=== PATIENT | female | born 1940 | race African-American/Black ===

== ENCOUNTER 2016-10-13 10:13 | Outpatient (CLI) | payer MEDICARE ==
--- NOTE | 2016-10-13 14:50 | Cat Scan Report ---
Cranial CT without contrast. Findings: The brain parenchyma is normal. There is no evidence of hemorrhage, mass, or extra-axial collection. The Posterior fossa is normal. Mild cortical atrophy is present. The calvarium is intact. There is a small mucosal polyp or cyst in the left maxillary sinus. Impression: No acute intracranial findings.
== END 2016-10-13 10:14 | disposition home or self-care (01) ==
LOC: CT 10:13
PROVIDERS: ATTEND Family Medicine
DX: G44.319 Acute post-traumatic headache, not intractable (principal); S09.90XA Unspecified injury of head, initial encounter; G31.9 Degenerative disease of nervous system, unspecified; X58.XXXA Exposure to other specified factors, initial encounter; Y93.89 Activity, other specified; Y92.89 Other specified places as the place of occurrence of the external cause; Y99.8 Other external cause status
CPT/HCPCS: 70450

== ENCOUNTER 2017-07-13 10:42 | Outpatient (CLI) | payer MEDICARE ==
--- NOTE | 2017-07-13 16:45 | Mammography Report ---
BILATERAL DIGITAL SCREENING MAMMOGRAM with CAD : 07/13/17 10:42:00 CLINICAL: Routine screening. COMPARISON:02/10/13 FINDINGS: The breasts are heterogeneously dense, which may obscure small masses.Bilateral benign vascular calcifications. No mass, architectural distortion or suspicious calcifications. IMPRESSION: No mammographic evidence of malignancy. BI-RADS CATEGORY: 2 -- Benign RECOMMENDATION: Routine mammographic screening in one year. COMMENT: Patient follow-up letters are generated by our [employer] application.
== END 2017-07-13 10:43 | disposition home or self-care (01) ==
LOC: SPVWC 10:42
PROVIDERS: ATTEND Internal Medicine
DX: Z12.31 Encounter for screening mammogram for malignant neoplasm of breast (principal)
CPT/HCPCS: 77067; G0202

== ENCOUNTER 2019-08-14 12:17 | Outpatient (CLI) | payer MEDICARE ==
--- NOTE | 2019-08-14 14:51 | Cat Scan Report ---
CT HEAD WITHOUT CONTRAST INDICATION / CLINICAL INFORMATION: G44.319 ACUTE POST TRAUMATIC HEADACHE/UNSPECIFIED INJURY OF HEAD. TECHNIQUE: Axial imaging performed from the skull apex through the skull base without the use of cont rast. Sagittal and coronal reformatted images. All CT scans at this location are performed using CT dose reduction for ALARA by means of automated exposure control. COMPARISON: 10/13/2016 FINDINGS: CEREBRAL PARENCHYMA: No significant abnormality. No acute territorial infarct. HEMORRHAGE: None. EXTRA-AXIAL SPACES: Normal in size and morphology for the patient's age. VENTRICULAR SYSTEM: Normal in size and morphology for the patient's age. MIDLINE SHIFT OR HERNIATION: None. CEREBELLUM / BRAINSTEM: No significant abnormality. CALVARIUM: No significant abnormality. ORBITS: Normal as visualized. PARANASAL SINUSES / MASTOID AIR CELLS: Normal as visualized. SOFT TISSUES of HEAD: No significant abnormality. ADDITIONAL FINDINGS: None. IMPRESSION: No acute intracranial abnormality. Signer Name: Terrance Camacho Jr, MD Signed: 08/14/2019 2:47 PM Workstation Name: [id number]
== END 2019-08-14 12:18 | disposition home or self-care (01) ==
LOC: CT 12:17
PROVIDERS: ATTEND Internal Medicine
DX: S09.90XA Unspecified injury of head, initial encounter (principal); G44.319 Acute post-traumatic headache, not intractable; X58.XXXA Exposure to other specified factors, initial encounter; Y93.89 Activity, other specified; Y92.89 Other specified places as the place of occurrence of the external cause; Y99.8 Other external cause status
CPT/HCPCS: 70450

== ENCOUNTER 2019-08-30 10:53 | Outpatient (CLI) | payer MEDICARE ==
[2019-08-30 11:51] LABS: Blood Urea Nitrogen 11 mg/dL (7-17)
--- NOTE | 2019-08-30 13:23 | Cat Scan Report ---
CT ABDOMEN AND PELVIS WITH CONTRAST INDICATION / CLINICAL INFORMATION: C56.9 OVARIAN CANCER/OVARIAN MASS IN PAST ON MRI 12CM. TECHNIQUE: Axial CT images were obtained through the abdomen and pelvis after 100 cc Omnipaque 300 milligrams pe rcent IV contrast. All CT scans at this location are performed using CT dose reduction for ALARA by means of automated exposure control. COMPARISON: None available. FINDINGS: LOWER CHEST: No significant abnormality. LIVER: Approximately 9 low density poorly defined lesions are present in the liver, largest posterior aspect right lobe near the diaphragm measuring 2 cm in diameter, most consistent with metastatic dis ease GALLBLADDER: No significant abnormality. BILE DUCTS: No significant abnormality. PANCREAS: No significant abnormality. SPLEEN: No significant abnormality. ADRENALS: No significant abnormality. RIGHT KIDNEY and URETER: No significant abnormality. LEFT KIDNEY and URETER: No significant abnormality. STOMACH and SMALL BOWEL: No significant abnormality. COLON: No significant abnormality. APPENDIX: No significant abnormality. PERITONEUM: Large mass left lower quadrant measures 6.4 x 6.2 cm. Large central pelvis mass measuring 15 x 10 cm with heterogeneous enhancement and demonstrates multiple components LYMPH NODES: No significant adenopathy. AORTA and ARTERIES: No significant abnormality. IVC and VEINS: No significant abnormality. URINARY BLADDER: No significant abnormality. REPRODUCTIVE ORGANS: No significant abnormality. ADDITIONAL FINDINGS: None. SKELETAL SYSTEM: No significant abnormality. IMPRESSION: 1. Probable hepatic metastatic disease 2. Several large masses in the lower abdomen and pelvis consistent with metastatic mass lesions Signer Name: Ervin Jones MD Signed: 08/30/2019 1:19 PM Workstation Name: [id number]
== END 2019-08-30 10:54 | disposition home or self-care (01) ==
LOC: CT 10:53
PROVIDERS: ATTEND Internal Medicine Hematology & Oncology
DX: R19.04 Left lower quadrant abdominal swelling, mass and lump (principal); C56.9 Malignant neoplasm of unspecified ovary
CPT/HCPCS: 36415; 74177; 82565; 84520; Q9967

== ENCOUNTER 2019-09-12 07:01 | Day surgery (SDC) | payer MEDICARE ==
[2019-09-12] MEDS ORDERED: ONDANSETRON 4 MG/2 ML INJ IV NR (08:27)
[2019-09-12 08:32] LABS: Basophils % (Auto) 0.7 % (0.0-1.8); Eosinophils % (Auto) 0.9 % (0.0-4.3); Hematocrit 33.3 % (30.3-42.9); Hemoglobin 11.5 gm/dl (10.1-14.3); Lymphocytes # (Auto) 0.8 K/mm3 (1.2-5.4); Lymphocytes % (Auto) 21.5 % (13.4-35.0); Mean Corpuscular HGB Conc 35 % (30-34); Mean Corpuscular Volume 89 fl (79-97); Monocytes # (Auto) 0.3 K/mm3 (0.0-0.8); Monocytes % (Auto) 7.7 % (0.0-7.3); Platelet Count 212 K/mm3 (140-440); Red Blood Count 3.77 M/mm3 (3.65-5.03); Red Cell Distribution Width 13.7 % (13.2-15.2)
[2019-09-12 08:42] LABS: INR 0.94 (0.87-1.13)
[2019-09-12 08:43] LABS: Partial Thromboplastin Time 33.9 Sec. (24.2-36.6)
[2019-09-12] MEDS ORDERED: HYDROmorphone 1 MG/1 ML INJ IV NR (09:00)
[2019-09-12] MEDS ORDERED: HYDROmorphone 1 MG/1 ML INJ ONE (10:38)
[2019-09-12] MEDS ORDERED: HYDROmorphone 1 MG/1 ML INJ IV ONE (11:30)
--- NOTE | 2019-09-12 12:09 | Cat Scan Report ---
CT-GUIDED PELVIC BIOPSY INDICATION : mass. COMPARISON: CT abdomen pelvis dated 08/30/2018 PROCEDURE: The risks (including but not limited to bleeding and infection) and benefits were explain ed to the patient and informed consent was obtained. All CT scans at this location are performed usi ng CT dose reduction for ALARA by means of automated exposure control. A time out procedure was performed. The procedure site was prepped and draped in the usual sterile f ashion and lidocaine was used for local anesthesia. Anxiolysis was accomplished with IV Dilaudid and Zofran. Using CT guidance a 17-gauge introducer needle was advanced to the central portions of a 10 x 7 cm ma ss in the midline pelvis. 2 separate 2.4 cm 18-gauge core biopsies were obtained which demonstrated n ecrotic material. After discussing this with the pathologist it was decided to sample a different are a. The needle was moved to a left lower quadrant mass measuring 8.4 x 6.4 cm. 3 separate 2.4 cm 18-ga uge core biopsies were obtained from this mass. The samples were deemed adequate by the pathologist o n site. Follow-up scan demonstrates no evidence for hemorrhage. The patient tolerated the procedure well with no complications. IMPRESSION: Successful CT-guided biopsy of a left lower quadrant pelvic mass as described. Signer Name: Terrance Camacho Jr, MD Signed: 09/12/2019 12:04 PM Workstation Name: [id number]
[2019-09-12 12:39] VITALS: BP 126/52
== END 2019-09-12 12:35 | disposition home or self-care (01) ==
LOC: CATHLABREC 07:01 → EDSTATUS 08:30 → CATHLABREC 12:35
PROVIDERS: ATTEND Internal Medicine Hematology & Oncology
DX: R19.04 Left lower quadrant abdominal swelling, mass and lump (principal); C56.9 Malignant neoplasm of unspecified ovary; E78.00 Pure hypercholesterolemia, unspecified; I10 Essential (primary) hypertension; M19.90 Unspecified osteoarthritis, unspecified site; Z98.890 Other specified postprocedural states; Z79.899 Other long term (current) drug therapy
CPT/HCPCS: 20206; 36415; 77012; 85025; 85610; 85730; 88172; 88173; 88177; 88184; 88185; 88305; 88341; 96374; 96375; J1170; J2405; 88307; 88333; 88342

== ENCOUNTER 2020-09-26 10:20 | Outpatient (CLI) | payer MEDICARE ==
[2020-09-26 12:31] LABS: Blood Urea Nitrogen 6 mg/dL (7-17)
--- NOTE | 2020-09-26 17:05 | Cat Scan Report ---
CT abdomen pelvis w con, CT chest w con INDICATION: Restaging gist tumor. TECHNIQUE: All CT scans at this location are performed using the following dose modulation technique: Automated exposure control. CONTRAST: Omnipaque 300, 100 cc IV injection. COMPARISON: CT abdomen and pelvis 02/28/2020. CT CHEST: The chest has not been imaged previously. There are patchy bilateral areas of infiltrate an d nodularity. There is likely chronic superimposed scarring with associated calcification and volume loss at the left upper lobe. No dominant mass or pleural fluid. No dominant mediastinal mass or significant adenopathy. CT ABDOMEN: Hepatic metastatic disease remains with interval worsening. An index lesion at the right hepatic lobe (series 3, image 23) is increased from 2-2.8 CM. A second more posterior lesion (series 3, image 19) is increased from 2.6-3.8 cm. The additional smaller lesions have also increased in size the remaining parenchymal organs are unchanged. Increasing soft tissue masses are seen throughout the abdomen. An high school admissions representative lesion at the r ight upper quadrant within the mesentery medial to the right colon measures 8.2 cm (series 3, image 7 5). A second used equipment sales representative lesion anterior and medial to the left colon (series 3, image 80) measure s 8.[address] PELVIS: Increased tumor burden within pelvis. The largest deep pelvic lesion has increased in size from 9 x 14.9 cm-10.6 x 16.7 cm. Evaluation the bones demonstrates scattered sclerotic bony lesions. The largest at the left pelvis is unchanged measuring 9 mm. IMPRESSION: 1. Worsening hepatic and intraperitoneal metastatic disease. 2. Patchy infiltrates within the lungs are favored to be inflammatory superimposed upon chronic gill e at the left upper lobe. 3. Stable sclerotic bony lesions. Signer Name: Ger Zavala MD Signed: 09/26/2020 5:00 PM Workstation Name: [id number]
--- NOTE | 2020-09-26 17:05 | Cat Scan Report ---
CT abdomen pelvis w con, CT chest w con INDICATION: Restaging gist tumor. TECHNIQUE: All CT scans at this location are performed using the following dose modulation technique: Automated exposure control. CONTRAST: Omnipaque 300, 100 cc IV injection. COMPARISON: CT abdomen and pelvis 02/28/2020. CT CHEST: The chest has not been imaged previously. There are patchy bilateral areas of infiltrate an d nodularity. There is likely chronic superimposed scarring with associated calcification and volume loss at the left upper lobe. No dominant mass or pleural fluid. No dominant mediastinal mass or significant adenopathy. CT ABDOMEN: Hepatic metastatic disease remains with interval worsening. An index lesion at the right hepatic lobe (series 3, image 23) is increased from 2-2.8 CM. A second more posterior lesion (series 3, image 19) is increased from 2.6-3.8 cm. The additional smaller lesions have also increased in size the remaining parenchymal organs are unchanged. Increasing soft tissue masses are seen throughout the abdomen. An technical services representative lesion at the r ight upper quadrant within the mesentery medial to the right colon measures 8.2 cm (series 3, image 7 5). A second product representative lesion anterior and medial to the left colon (series 3, image 80) measure s 8.[address] PELVIS: Increased tumor burden within pelvis. The largest deep pelvic lesion has increased in size from 9 x 14.9 cm-10.6 x 16.7 cm. Evaluation the bones demonstrates scattered sclerotic bony lesions. The largest at the left pelvis is unchanged measuring 9 mm. IMPRESSION: 1. Worsening hepatic and intraperitoneal metastatic disease. 2. Patchy infiltrates within the lungs are favored to be inflammatory superimposed upon chronic gill e at the left upper lobe. 3. Stable sclerotic bony lesions. Signer Name: Ger Zavala MD Signed: 09/26/2020 5:00 PM Workstation Name: [id number]
== END 2020-09-26 10:21 | disposition home or self-care (01) ==
LOC: CT 10:20
DX: C49.A0 Gastrointestinal stromal tumor, unspecified site (principal); C78.7 Secondary malignant neoplasm of liver and intrahepatic bile duct; C78.6 Secondary malignant neoplasm of retroperitoneum and peritoneum; K76.9 Liver disease, unspecified; R19.00 Intra-abdominal and pelvic swelling, mass and lump, unspecified site; M89.9 Disorder of bone, unspecified; R91.8 Other nonspecific abnormal finding of lung field
CPT/HCPCS: 36415; 71260; 74177; 82565; 84520; Q9967

== ENCOUNTER 2021-01-23 10:46 | Outpatient (CLI) | payer MEDICARE ==
[2021-01-23 11:58] LABS: Blood Urea Nitrogen 7 mg/dL (7-17)
--- NOTE | 2021-01-23 15:17 | Cat Scan Report ---
CT CHEST WITH CONTRAST INDICATION / CLINICAL INFORMATION: Malignant gastrointestinal stromal tumor, unspecified site. TECHNIQUE: Axial CT images were obtained through the chest after 100 cc IV contrast. Sagittal and coronal reform atted images. All CT scans at this location are performed using CT dose reduction for ALARA by means of automated exposure control. COMPARISON: 09/26/2019 FINDINGS: HEART: No significant abnormality. THORACIC AORTA: No significant abnormality. MEDIASTINUM and ANTONIO: No significant abnormality. LUNGS: Patchy bilateral groundglass airspace densities seen on the previous exam have resolved. There is linear scarring or in the left upper lobe which is unchanged. No evidence for mass or acute infil trate. PLEURA: No significant pleural effusion. No pneumothorax. SKELETAL SYSTEM: Mild osteopenia and degenerative changes in the spine. IMPRESSION: No evidence for metastatic disease to the chest. Bilateral lung opacities seen on the previous exam have resolved. CT ABDOMEN AND PELVIS WITH CONTRAST HISTORY: Malignant gastrointestinal stromal tumor, unspecified site. COMPARISON: 09/26/2020 TECHNIQUE: Helical CT images of the abdomen and pelvis were obtained following administration of intr avenous contrast. Sagittal and coronal reformatted images were reviewed. All CT scans at this locatio n are performed using CT dose reduction for ALARA by means of automated exposure control. CONTRAST: 100 ml of intravenous contrast administered. FINDINGS: Metastatic lesions to the liver appear stable in number but increased in size. For instance the right hepatic lobe lesion has increased from 2.8 cm to 4.0 cm. There are numerous mesenteric implants on t asuncion's exam which have significantly increased in size. There also appear to be a few new mesenteric implants. For instance, a right abdominal mass has increased from 8.2 cm to 9.8 cm. A left abdominal mass has increased from 5.1 cm to 9.0 cm. There appears to be a new mass near midline measuring 8.4 c m. Large coalescent pelvic mass has increased from 17 x 11 cm to 19 x 13 cm. The biliary system, pancreas, spleen, kidneys and adrenal glands remain unremarkable. Scattered tiny renal cysts are again noted. The vascular structures appear patent. No evidence for bowel duction, in flammation or free air. Trace ascites is identified in the abdomen which is slightly increased. Bony structures are demineralized. No suspicious bony lesion is appreciated. IMPRESSION: Significant progression of disease is demonstrated. Metastatic liver lesions appear increased in size throughout. Mesenteric implants throughout the abdomen have also increased in size with a few new me senteric implants identified. Signer Name: Terrance Camacho Jr, MD Signed: 01/23/2021 3:12 PM Workstation Name: [id number]
== END 2021-01-23 10:47 | disposition home or self-care (01) ==
LOC: CT 10:46
PROVIDERS: ATTEND Internal Medicine Hematology & Oncology
DX: C49.A0 Gastrointestinal stromal tumor, unspecified site (principal); R91.8 Other nonspecific abnormal finding of lung field; M85.88 Other specified disorders of bone density and structure, other site; M47.814 Spondylosis without myelopathy or radiculopathy, thoracic region
CPT/HCPCS: 36415; 71260; 74177; 82565; 84520; Q9967

== ENCOUNTER 2021-02-18 11:51 | Outpatient (CLI) | payer MEDICARE | END 2021-02-18 11:52 | disposition home or self-care (01) | LOC: ECHO 11:51 | PROVIDERS: ATTEND Internal Medicine Hematology & Oncology | DX: I08.3 Combined rheumatic disorders of mitral, aortic and tricuspid valves (principal); T45.1X5D Adverse effect of antineoplastic and immunosuppressive drugs, subsequent encounter | CPT/HCPCS: 93306 ==

== ENCOUNTER 2021-08-29 15:02 | Emergency (ER) | payer MEDICARE ==
[2021-08-29 15:08] VITALS: BP 133/54
--- NOTE | 2021-08-29 15:18 | Event Note ---
I was contacted by patient's primary care physician. Patient has history of GIST. Also has history of anemia. PCP suspects that patient will need transfusion. He requested CBC and transfusion as needed. CBC chemistry type and screen ordered.
[2021-08-29 15:58] LABS: Mean Corpuscular HGB Conc 33 % (30-34); Mean Corpuscular Volume 104 fl (79-97); Platelet Count 238 K/mm3 (140-440)
[2021-08-29 16:03] LABS: Red Cell Distribution Width 21.7 % (13.2-15.2)
[2021-08-29 16:04] LABS: Hematocrit 16.6 % (30.3-42.9); Hemoglobin 5.6 gm/dl (10.1-14.3)
--- NOTE | 2021-08-29 16:05 | Emergency Department Report ---
HPI - General Chief Complaint: Dizziness Time Seen by Provider: 08/29/21 15:45 - HPI HPI: 80-year-old female with history of hypertension and metastatic gist tumor of the pelvis sent over by her PCP due to suspected need for blood transfusion. Apparently, the patient had a trip and fall 2 weeks ago in which she hit her head. She did not lose consciousness. She was seen in urgent care but because of the wait time decided to leave. Since then she is complained of generalized weakness and persistent headache. She spoke with her PCP who was able to look up the labs and discovered that the patient is anemic. He sent her in for further evaluation. She denies any symptoms other than those mentioned. She denies any vaginal or rectal bleeding or dark tarry stools. She denies injury to any other area of the body. She denies fever/chills, vision change, neck pain, back pain, chest pain, cough, shortness of breath, nausea/vomiting, focal weakness, sensory changes, or any other complaints. She has abdominal pain but says this is chronic in nature. Her last chemo was approximately 1 week ago. She is not vaccinated against COVID-19. ED Past Medical Hx - Past Medical History Hx Hypertension: Yes Hx Liver Disease: Yes Hx Arthritis: Yes Additional medical history: PELVIC CA - Social History Smoking Status: Never Smoker - Medications Home Medications: Home Medications Medication Instructions Recorded Confirmed Last Taken Type Lovastatin [Altoprev] 20 mg PO DAILY 09/12/19 09/12/19 09/11/19 History 20 mg Naproxen 500 mg PO BID 09/12/19 09/12/19 09/11/19 History Olopatadine HCl 2 drops OU DAILY 09/12/19 09/12/19 09/11/19 History 2 amLODIPine 5 mg PO DAILY 09/12/19 09/12/19 09/11/19 History 5 mg raNITIdine HCL [Zantac] 150 mg PO QHS 09/12/19 09/12/19 09/11/19 History 150 mg ED Review of Systems ROS: Stated complaint: NEED BLOOD TRANSFUSION Other details as noted in HPI Comment: All other systems reviewed and negative Constitutional: weakness. denies: chills, fever Eyes: denies: eye pain, vision change ENT: denies: throat pain, congestion Respiratory: denies: cough, shortness of breath Cardiovascular: denies: chest pain, palpitations Gastrointestinal: abdominal pain. denies: nausea, vomiting Genitourinary: denies: dysuria, frequency Musculoskeletal: denies: back pain, arthralgia Skin: denies: rash, lesions Neurological: headache. denies: weakness, numbness, paresthesias Physical Exam - Physical Exam Vital Signs: Vital Signs 08/29/21 15:07 Temperature 98.6 F Pulse Rate 79 Respiratory 20 Rate Blood Pressure 133/54 O2 Sat by Pulse 98 Oximetry Physical Exam: GENERAL: Frail appearing elderly female in no acute distress HEAD: Normocephalic. Posterior occipital contusion. No lacerations or abrasions. ENT: Moist mucous membranes. EYES: Extraocular movements are intact. Pupils are equal round and reactive to light bilaterally NECK: Supple. Full ROM is intact. Trachea is midline. LUNGS: Nonlabored breathing. Equal chest rise bilaterally. Clear to auscultation bilaterally. CARDIOVASCULAR: Regular rate and rhythm. No murmurs or rubs. VASCULAR: Cap refill < 2 seconds ABDOMEN: Abdomen is distended and slightly firm. There is no significant tenderness, guarding or rebound. SKIN: Pale and jaundiced. Otherwise skin is warm and dry. NEURO: Patient is awake, alert, and oriented. 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 No foca l deficits. Normal motor and sensory exam throughout. Normal speech. MUSCULOSKELETAL: No obvious deformities. No significant tenderness. Normal ROM throughout. BACK/SPINE: No midline tenderness or step-offs of the C/T/L spine. No costovertebral angle tenderness. ED Course Vital Signs 08/29/21 15:07 Temperature 98.6 F Pulse Rate 79 Respiratory 20 Rate Blood Pressure 133/54 O2 Sat by Pulse 98 Oximetry ED Medical Decision Making - Lab Data Result diagrams: 08/29/21 15:23 08/29/21 15:23 Lab Results 08/29/21 08/29/21 08/29/21 Range/Units 15:20 15:23 15:23 WBC 3.2 L (4.5-11.0) K/mm3 RBC 1.60 L (3.65-5.03) M/mm3 Hgb 5.6 L* (10.1-14.3) gm/dl Hct 16.6 L* (30.3-42.9) % MCV 104 H (79-97) fl MCH 35 H (28-32) pg MCHC 33 (30-34) % RDW 21.7 H (13.2-15.2) % Plt Count 238 (140-440) K/mm3 [place] % (Auto) Port Cdl A Driver Add Manual Diff Complete Total Counted 100 Seg Neuts % (Manual) 71.0 H (40.0-70.0) % Band Neutrophils % 0 % Lymphocytes % (Manual) 10.0 L (13.4-35.0) % Reactive Lymphs % (Man) 0 % Monocytes % (Manual) 17.0 H (0.0-7.3) % Eosinophils % (Manual) 2.0 (0.0-4.3) % Basophils % (Manual) 0 (0.0-1.8) % Metamyelocytes % 0 % Myelocytes % 0 % Promyelocytes % 0 % Blast Cells % 0 % Nucleated RBC % Not Reportable Seg Neutrophils # Man 2.3 (1.8-7.7) K/mm3 Band Neutrophils # 0.0 K/mm3 Lymphocytes # (Manual) 0.3 L (1.2-5.4) K/mm3 Abs React Lymphs (Man) 0.0 K/mm3 Monocytes # (Manual) 0.5 (0.0-0.8) K/mm3 Eosinophils # (Manual) 0.1 (0.0-0.4) K/mm3 Basophils # (Manual) 0.0 (0.0-0.1) K/mm3 Metamyelocytes # 0.0 K/mm3 Myelocytes # 0.0 K/mm3 Promyelocytes # 0.0 K/mm3 Blast Cells # 0.0 K/mm3 WBC Morphology Not Reportable Hypersegmented Neuts Not Reportable Hyposegmented Neuts Not Reportable Hypogranular Neuts Not Reportable Smudge Cells Not Reportable Toxic Granulation Not Reportable Toxic Vacuolation Not Reportable Dohle Bodies Not Reportable Pelger-Huet Anomaly Not Reportable Elida Rods Not Reportable Platelet Estimate Consistent w auto Clumped Platelets Not Reportable Plt Clumps, EDTA Not Reportable Large Platelets Few Giant Platelets Not Reportable Platelet Satelliting Not Reportable Plt Morphology Comment Not Reportable RBC Morphology Not Reportable Dimorphic RBCs Not Reportable Polychromasia Not Reportable Hypochromasia Not Reportable Poikilocytosis Not Reportable Anisocytosis 1+ Microcytosis Not Reportable Macrocytosis 1+ Spherocytes Not Reportable Pappenheimer Bodies Not Reportable Sickle Cells Not Reportable Target Cells 1+ Tear Drop Cells Not Reportable Ovalocytes Not Reportable Helmet Cells Not Reportable [place] Bodies Not Reportable [place] Rings Not Reportable [place] Cells Not Reportable Bite Cells Not Reportable Crenated Cell Not Reportable Elliptocytes Not Reportable Acanthocytes (Spur) Not Reportable Rouleaux Not Reportable Hemoglobin C Crystals Not Reportable Schistocytes 1+ Malaria parasites Not Reportable Vamshi Bodies Not Reportable Hem Pathologist Commnt No PT (12.2-14.9) Sec. INR (0.87-1.13) APTT (24.2-36.6) Sec. Sodium 134 L (137-145) mmol/L Potassium 2.6 L* (3.6-5.0) mmol/L Chloride 92.9 L (98-107) mmol/L Carbon Dioxide 29 (22-30) mmol/L Anion Gap 15 mmol/L BUN 14 (7-17) mg/dL Creatinine 0.6 (0.6-1.2) mg/dL Estimated GFR > 60 ml/min BUN/Creatinine Ratio 23 % Glucose 110 H (65-100) mg/dL Calcium 9.3 (8.4-10.2) mg/dL Magnesium (1.7-2.3) mg/dL Total Bilirubin (0.1-1.2) mg/dL Direct Bilirubin (0-0.2) mg/dL Indirect Bilirubin mg/dL AST (5-40) units/L ALT (7-56) units/L Alkaline Phosphatase (35-129) units/L Total Protein (6.3-8.2) g/dL Albumin (3.9-5) g/dL Albumin/Globulin Ratio % Lipase (13-60) units/L Blood Type B POSITIVE Antibody Screen Negative 08/29/21 08/29/21 08/29/21 Range/Units 18:09 Unknown Unknown WBC (4.5-11.0) K/mm3 RBC (3.65-5.03) M/mm3 Hgb (10.1-14.3) gm/dl Hct (30.3-42.9) % MCV (79-97) fl MCH (28-32) pg MCHC (30-34) % RDW (13.2-15.2) % Plt Count (140-440) K/mm3 [place] % (Auto) Add Manual Diff Total Counted Seg Neuts % (Manual) (40.0-70.0) % Band Neutrophils % % Lymphocytes % (Manual) (13.4-35.0) % Reactive Lymphs % (Man) % Monocytes % (Manual) (0.0-7.3) % Eosinophils % (Manual) (0.0-4.3) % Basophils % (Manual) (0.0-1.8) % Metamyelocytes % % Myelocytes % % Promyelocytes % % Blast Cells % % Nucleated RBC % Seg Neutrophils # Man (1.8-7.7) K/mm3 Band Neutrophils # K/mm3 Lymphocytes # (Manual) (1.2-5.4) K/mm3 Abs React Lymphs (Man) K/mm3 Monocytes # (Manual) (0.0-0.8) K/mm3 Eosinophils # (Manual) (0.0-0.4) K/mm3 Basophils # (Manual) (0.0-0.1) K/mm3 Metamyelocytes # K/mm3 Myelocytes # K/mm3 Promyelocytes # K/mm3 Blast Cells # K/mm3 WBC Morphology Hypersegmented Neuts Hyposegmented Neuts Hypogranular Neuts Smudge Cells Toxic Granulation Toxic Vacuolation Dohle Bodies Pelger-Huet Anomaly [place] Rods Platelet Estimate Clumped Platelets Plt Clumps, EDTA Large Platelets Giant Platelets Platelet Satelliting Plt Morphology Comment RBC Morphology Dimorphic RBCs Polychromasia Hypochromasia Poikilocytosis Anisocytosis Microcytosis Macrocytosis Spherocytes Pappenheimer Bodies Sickle Cells Target Cells Tear Drop Cells Ovalocytes Helmet Cells [place] Bodies [place] Cells Bite Cells Crenated Cell Elliptocytes Acanthocytes (Spur) Rouleaux Hemoglobin C Crystals Schistocytes Malaria parasites Vamshi Bodies Hem Pathologist Commnt PT 13.8 (12.2-14.9) Sec. INR 0.96 (0.87-1.13) APTT 35.7 (24.2-36.6) Sec. Sodium (137-145) mmol/L Potassium (3.6-5.0) mmol/L Chloride (98-107) mmol/L Carbon Dioxide (22-30) mmol/L Anion Gap mmol/L BUN (7-17) mg/dL Creatinine (0.6-1.2) mg/dL Estimated GFR ml/min BUN/Creatinine Ratio % Glucose (65-100) mg/dL Calcium (8.4-10.2) mg/dL Magnesium 2.10 (1.7-2.3) mg/dL Total Bilirubin 1.30 H (0.1-1.2) mg/dL Direct Bilirubin 0.3 H (0-0.2) mg/dL Indirect Bilirubin 1.0 mg/dL AST 35 (5-40) units/L ALT 8 (7-56) units/L Alkaline Phosphatase 64 (35-129) units/L Total Protein 7.7 (6.3-8.2) g/dL Albumin 3.8 L (3.9-5) g/dL Albumin/Globulin Ratio 1.0 % Lipase 60 (13-60) units/L Blood Type Antibody Screen - EKG Data -: EKG Interpreted by Ne - EKG Data 08/29/21 17:25 Normal sinus rhythm. Normal axis. Normal intervals. No ectopy. No significant ST segment or T wave abnormalities. - Radiology Data Radiology results: report reviewed - Medical Decision Making 80-year-old female with history of metastatic GIST tumor sent by her PCP for suspected anemia and need for blood transfusion. The patient apparently had a trip and fall 2 weeks ago in which she hit the back of her head. She did not lose consciousness. However, she has had a persistent headache since then. She was alerted by her PCP that her labs showed she has anemia and so she is here today for a blood transfusion. Other than the persistent headache she also reports she has had generalized weakness. She is afebrile and with normal vital signs. On exam she appears frail, pale, and jaundice. She has a posterior occipital contusion. She has no mid spinal tenderness. She has a nonfocal neurologic exam. We will perform broad work-up with a full set of labs to include CBC given that her PCP advised for a blood transfusion. In addition, given that she has had persistent headache for 2 weeks after a fall we will obtain CT of the head to assess for evidence of intracranial hemorrhage, mass, or other intracranial abnormality to explain the patient's presentation Labs have partially resulted revealing hemoglobin of 5.5 with white blood cell count of 3.2. Platelets are within normal limits. Given her significant anemia and symptoms we will transfuse 2 units of PRBCs. Chemistry reveals normal kidney function but with significant hypokalemia with potassium of 2.6. I have ordered 40 mEq of oral potassium as well as 40 mEq of IV potassium over [address] of the head reveals several different types of subacute intracranial hemorrhage including subarachnoid and subdural hemorrhage. There is mild mass- effect but no midline shift. Given finding of intracranial hemorrhage I have ordered cervical collar as well as CT of the cervical spine to assess for evidence of fracture. At 5:37 PM I spoke with Dr. Guardado of neurosurgery regarding the case. He recommends transfer to a trauma facility with neurosurgery capability given that she is high risk of further bleeding. 6:14 PM I spoke with Dr. Velasquez from [facility] regarding transfer. She accepts the patient for transfer [place] [facility] [place] Rectal exam was performed with nurse present as a agency service representative and reveals scant blood in the rectal vault which is Hemoccult positive. I have ordered 80 mg of IV Protonix. Chest x-ray shows bilateral interstitial opacities of unclear etiology. Given the possibility of pneumonia I have ordered IV azithromycin and ceftriaxone. The patient and her [id number] were updated about these findings and the need for transfer and expressed understanding and agreement. CT of the cervical spine reveals no acute abnormalities. Critical Care Time: Yes Critical care time in (mins) excluding proc time.: 50 Critical care attestation.: If time is entered above; I have spent that time in minutes in the direct care of this critically ill patient, excluding procedure time. ED Disposition Clinical Impression: Malignant GIST (gastrointestinal stromal tumor), GI bleed, Symptomatic anemia, Hypokalemia, Subarachnoid hemorrhage, Subdural hemorrhage, Head trauma, Pneumonia Disposition: 02 SHORT TERM [facility]OSPITAL Is pt being admited?: No Condition: Serious Instructions: Bacterial Pneumonia (ED) Referrals: PRIMARY CARE, [Primary Care Provider] - 3-5 Days
[2021-08-29 16:11] LABS: Blood Urea Nitrogen 14 mg/dL (7-17); Calcium 9.3 mg/dL (8.4-10.2); Hemolysis Index 2
[2021-08-29 16:19] LABS: BUN/Creatinine Ratio 23
[2021-08-29] MEDS ORDERED: SODIUM CHLORIDE 0.9% 500 ML 500 ML IV ONE (16:20)
[2021-08-29] MEDS ORDERED: POTASSIUM CHLORIDE ER 20 MEQ TAB PO ONE (16:27)
--- NOTE | 2021-08-29 16:32 | XRay Report ---
CHEST 1 VIEW 08/29/2021 4:19 PM INDICATION / CLINICAL INFORMATION: weakness. COMPARISON: CT of the chest dated 01/23/2021 FINDINGS: SUPPORT DEVICES: None. HEART / MEDIASTINUM: No significant abnormality. LUNGS / PLEURA: There are scattered patchy airspace opacities in bilateral lungs which may be sequela of prior infectious process. No pneumothorax. ADDITIONAL FINDINGS: No significant additional findings. IMPRESSION: 1. Scattered patchy airspace opacities in bilateral lungs which may be sequela of prior infectious pr ocess. Signer Name: Jay Palmer DO Signed: 08/29/2021 4:27 PM Workstation Name: [id number]
--- NOTE | 2021-08-29 16:45 | Cat Scan Report ---
. CT head/brain wo con INDICATION / CLINICAL INFORMATION: 80 years Female; fall 2 wks, contusion + persistent PRESTON. TECHNIQUE: Routine CT head without contrast. All CT scans at this location are performed using CT dos e reduction for ALARA by means of automated exposure control. COMPARISON: 08/14/2019 FINDINGS: BRAIN / INTRACRANIAL CONTENTS: Small area of extra-axial hemorrhage seen adjacent to the superior fro ntal gyrus on the left, causing mild mass effect. This area measures approximately 15 mm AP by 16 mm transversely by 11 mm craniocaudally. Small area of subarachnoid hemorrhage is suggested in the sulci of the posterior, superior right fron ashwin lobe as well. Very small parafalcine subdural collection rightward of midline near the paracentral lobule is suspec loraine. Small component of parafalcine, subdural blood is also suggested anteriorly and inferiorly along the falx. There may be an old subdural hematoma or subdural hygroma anteriorly on the right. Otherwise, no acute hemorrhage, mass effect, midline shift, hydrocephalus, or acute, large territoria l infarct. No signs of significant atrophy or chronic infarct. No significant white matter abnormalit y seen. CRANIOCERVICAL JUNCTION: No significant abnormality. ORBITS: No significant abnormality of visualized orbits. SINUSES / MASTOIDS: Small mucous retention cyst/polyp seen in the left maxillary antrum. ADDITIONAL FINDINGS: None. IMPRESSION: 1. Areas of intracranial hemorrhage as described above, most likely related to patient's history of f airly recent trauma. Minimal mass effect noted, as described above. Certainly, these findings are new from prior exam. Close follow-up is recommended to ensure resolution of these findings. 2. Otherwise, no focal mass, hydrocephalus, or large territorial infarct seen. Signer Name: Akil Yang MD, III Signed: 08/29/2021 4:41 PM Workstation Name: [id number]
[2021-08-29] MEDS ORDERED: POTASSIUM CHLORIDE 10 MEQ 10 MEQ/100 ML BAG IV SCH (17:00)
[2021-08-29 17:30] LABS: Albumin 3.8 g/dL (3.9-5); Bilirubin,Direct 0.3 mg/dL (0-0.2)
[2021-08-29 17:35] LABS: Anisocytosis 1+; Basophils % (Manual) 0 % (0.0-1.8); Large Platelets Few; Macrocytosis 1+; Platelet Estimate Consistent w Auto; Schistocytes 1+; Target Cells 1+; Total Cells Counted 100
[2021-08-29] MEDS ORDERED: cefTRIAXone/NS 2 GM/100 ML 2 GM/100 ML BAG IV ONE (17:39)
[2021-08-29] MEDS ORDERED: AZITHROMYCIN/NS 500 MG/250 ML 500 MG/250 ML BAG IV ONE (17:41)
[2021-08-29] MEDS ORDERED: PANTOPRAZOLE 40 MG INJ IV ONE (18:33)
[2021-08-29 18:40] LABS: INR 0.96 (0.87-1.13)
[2021-08-29 18:41] LABS: Partial Thromboplastin Time 35.7 Sec. (24.2-36.6)
--- NOTE | 2021-08-29 19:24 | Cat Scan Report ---
CT CERVICAL SPINE WITHOUT CONTRAST INDICATION / CLINICAL INFORMATION: ICH. TECHNIQUE: Axial CT images were obtained through the cervical spine. Sagittal and coronal reformatted images wer e produced. All CT scans at this location are performed using CT dose reduction for ALARA by means of automated exposure control. COMPARISON: None available. FINDINGS: ALIGNMENT: Normal alignment is maintained throughout. VERTEBRAE: No indication of fracture or bone destruction. Small bone islands are identified in the C3 vertebral body and T3 spinous process. DISC SPACES: Disc height is fairly well-maintained throughout. DEGENERATIVE CHANGES: CRANIOCERVICAL JUNCTION:No significant abnormality. SPINAL CANAL: Central spinal canal is adequately maintained throughout. PARASPINAL SOFT TISSUES: No significant abnormality. LUNG APICES: Biapical pleural and parenchymal fibrotic changes are noted. IMPRESSION: 1. No indication of fracture, traumatic subluxation or significant degenerative change. Signer Name: Gabo Banks MD Signed: 08/29/2021 7:20 PM Workstation Name: [id number]
--- NOTE | 2021-09-03 08:19 | Electrocardiograph Report ---
[facility] Test Date: 2021-08-29 Test Time: 16:44:28 Pat Name: MARJORIE HAMMER Department: Room: Gender: F Building Mover: KIYA : 1940 Requested By: IRENE ALMENDAREZ Order Number: [id number] Reading MD: Domi Cheung Measurements Intervals [place] Rate: 82 P: 57 OH: 141 QRS: 35 QRSD: 99 T: 33 QT: 372 QTc: 435 Interpretive Statements Sinus rhythm Nonspecific T abnrm, anterolateral leads No previous ECG available for comparison Electronically Signed On 09-03-2021 8:19:01 EST by Domi Cheung
== END 2021-08-29 19:07 | disposition short-term general hospital (02) ==
LOC: ED 15:02
DX: S06.6X9A Traumatic subarachnoid hemorrhage with loss of consciousness of unspecified duration, initial encounter (principal); S06.5X9A Traumatic subdural hemorrhage with loss of consciousness of unspecified duration, initial encounter; C49.A0 Gastrointestinal stromal tumor, unspecified site; C79.9 Secondary malignant neoplasm of unspecified site; K92.2 Gastrointestinal hemorrhage, unspecified; D64.9 Anemia, unspecified; E87.6 Hypokalemia; J18.9 Pneumonia, unspecified organism; I10 Essential (primary) hypertension; M19.90 Unspecified osteoarthritis, unspecified site; W19.XXXA Unspecified fall, initial encounter; Y93.89 Activity, other specified; Y92.89 Other specified places as the place of occurrence of the external cause; Y99.8 Other external cause status
CPT/HCPCS: 36415; 70450; 71045; 72125; 80048; 80076; 82271; 83690; 83735; 85007; 85025; 85610; 85730; 86850; 86900; 86901; 93005; 99291; J3480; J7040

== ENCOUNTER 2021-10-13 13:39 | Outpatient (CLI) | payer MEDICARE ==
--- NOTE | 2021-10-13 17:32 | Cat Scan Report ---
CT BRAIN: 10/13/2021 INDICATION / CLINICAL INFORMATION: C49.A0. COMPARISON: CT brain 08/29/2021 FINDINGS: BRAIN/INTRACRANIAL STRUCTURES: Unenhanced CT images of the brain were obtained and compared to a prio r exam from 08/29/2021. Previously seen focal areas of hyperdensity on the prior exam have is. There is no evidence of acute or residual hyperdense blood products. There is no evidence of acute ischemic injury, hemorrhage, or mass. A focal area of encephalomalacia in the high left frontal lobe corresponds to the area of previously seen hyperdensity, likely due to resolved hemorrhage. Age-related atrophic changes are noted. Atherosclerotic vascular calcifications are present in the distal internal carotid arteries and verte bral arteries. EXTRACRANIAL STRUCTURES: Unremarkable. IMPRESSION: No acute abnormality. Chronic and age-related changes. All CT scans at this location are performed using dose reduction to ALARA by means of automated expos ure control. Signer Name: Negrito Jules MD Signed: 10/13/2021 5:27 PM Workstation Name: [id number]
== END 2021-10-13 13:40 | disposition home or self-care (01) ==
LOC: CT 13:39
PROVIDERS: ATTEND Internal Medicine Hematology & Oncology
DX: C49.A0 Gastrointestinal stromal tumor, unspecified site (principal); I65.29 Occlusion and stenosis of unspecified carotid artery; G31.9 Degenerative disease of nervous system, unspecified; M79.89 Other specified soft tissue disorders
CPT/HCPCS: 70450